=== PATIENT | male | born 1935 | race Caucasian/White ===

== ENCOUNTER 2018-05-25 13:40 | Inpatient (IN) | payer MEDICARE, OTHER ==
[~2018-05-25] VITALS: Ht 175.3 cm; Wt 78.0 kg
[~2018-05-25 13:40] MED LIST: pneumococcal 23-VAL P-sac vacc 25 mcg/0.5ml vial IMVAC ONE
[2018-05-25] MEDS ORDERED: normal saline 1000ML IV soln IVB ONE (14:45)
[2018-05-25] MEDS ORDERED: levoFLOXACIN-Levaquin 500mg/D5 100 ML IV ONE (14:45)
[2018-05-25 15:09] LABS: BASOPHILS % (AUTO) 0 % (0-1); EOSINOPHILS % (AUTO) 0 % (0-6); HEMATOCRIT 39.3 % (42.0-52.0); LYMPHOCYTES # (AUTO) 0.7 X10'3 (1.1-4.8); LYMPHOCYTES % (AUTO) 2.5 % (21-51); MEAN CORPUSCULAR HEMOGLOBIN 34.6 PG (27.0-31.0); MEAN CORPUSCULAR HGB CONC 33.2 % (33.0-36.5); MEAN CORPUSCULAR VOLUME 104.3 FL (78-98); MEAN PLATELET VOLUME 11.5 FL (7.4-10.4); MONOCYTES # (AUTO) 3.2 X10'3 (0-0.9); MONOCYTES % (AUTO) 11.7 % (2-12); NEUTROPHILS # (AUTO) 23.4 X10'3 (1.8-7.7); NEUTROPHILS % (AUTO) 85.8 % (42-75); PLATELET COUNT 168 X10'3 (140-440); RED BLOOD COUNT 3.76 X10'6 (4.70-6.10); RED CELL DISTRIBUTION WIDTH 15.1 % (11.5-14.5)
[2018-05-25 15:11] LABS: WHITE BLOOD COUNT 27.3 X10'3 (4.5-11.0)
[2018-05-25 15:34] LABS: ALANINE AMINOTRANSFERASE 23 U/L (12-78); ALBUMIN 3.7 G/DL (3.4-5.0); ALKALINE PHOSPHATASE 97 IU/L (46-116); ANION GAP 9 (8-16); ASPARTATE AMINO TRANSFERASE 18 U/L (10-37); BILIRUBIN,TOTAL 1.1 MG/DL (0.1-1.0); BLOOD UREA NITROGEN 14 MG/DL (7-18); BUN/CREATININE RATIO 11.6 (5.4-32.0); CALCIUM 8.8 MG/DL (8.5-10.1); CHLORIDE 101 MMOL/L (99-107); CREATININE 1.21 MG/DL (0.60-1.10); GLUCOSE 115 MG/DL (70-104); POTASSIUM 3.7 MMOL/L (3.5-5.1); SODIUM 139 MMOL/L (135-145); TOTAL CARBON DIOXIDE 29.2 MMOL/L (24-32); TOTAL PROTEIN 7.3 G/DL (6.4-8.2); eGFR 57 ML/MIN
[2018-05-25 15:42] LABS: LARGE PLATELETS FEW; STOMATOCYTES 1+; TOTAL CELLS COUNTED 100; TOXIC GRANULATION 2+
[2018-05-25 15:43] LABS: PLATELET ESTIMATE NORMAL
[2018-05-25 16:05] LABS: INR 1.1 INR; PARTIAL THROMBOPLASTIN TIME 27 SECONDS (22-32); PROTHROMBIN TIME 10.5 SECONDS (9.0-12.0)
[2018-05-25] MEDS ORDERED: vancomycin/NS 1 GM ADD-VANTAGE 250 ML IV ONE (16:05)
[2018-05-25] MEDS ORDERED: FINA5TAB11 PO (16:10)
[2018-05-25] MEDS ORDERED: LOSA25TA96 PO (16:10)
[2018-05-25] MEDS ORDERED: ALLO100T PO (16:10)
[2018-05-25 16:34] LABS: CLARITY,URINE CLEAR (Clear); COLOR,URINE YELLOW (Yellow); GLUCOSE, URINE NEGATIVE (Neg); KETONES,URINE NEGATIVE (Neg); LEUKOCYTE ESTERASE ,URINE NEGATIVE (Neg); NITRITES, URINE NEGATIVE (Neg); OCCULT BLOOD,URINE NEGATIVE (Neg); PROTEIN,URINE TRACE mg/dl (Neg)
[2018-05-25 16:35] LABS: UA COLLECTION TYPE URINAL
[2018-05-25 16:39] LABS: RBC,URINE NONE SEEN /HPF (0-2); WBC,URINE NONE SEEN /HPF (0-4)
[2018-05-25 16:40] LABS: BACTERIA,URINE NONE SEEN /HPF (Neg); MUCUS STRANDS NONE SEEN /LPF (Neg); SQUAMOUS EPITHELIAL CELL,UR NONE SEEN /LPF (FEW)
[2018-05-25] MEDS ORDERED: ipratropium/albuterol 3ml nebule NEB PRN (17:00)
[2018-05-25] MEDS ORDERED: potassium Cl 20 mEq SR tablet PO PRN ×2 (17:00)
[2018-05-25] MEDS ORDERED: ondansetron/PF 4mg/2ml inj IV PRN (17:00)
[2018-05-25] MEDS ORDERED: magnesium 4gm in 100ml NS 100 ML IV PRN (17:00)
[2018-05-25] MEDS ORDERED: magnesium Cl slow-release 64mg tablet PO PRN (17:00)
[2018-05-25] MEDS ORDERED: acetaminophen 325mg tablet PO PRN (17:00)
[2018-05-25] MEDS ORDERED: potassium Cl 40MEQ/NS 500ml 500 ML IV PRN ×2 (17:00)
[2018-05-25] MEDS: ipratropium/albuterol 3ml nebule NEB SCH ×2 (17:45→23:47)
--- NOTE | 2018-05-25 17:54 | NUR ---
PRE SVN STARTED AT 1745 DID NOT CHART IN REAL TIME
[2018-05-25] MEDS: normal saline 1000ml 1,000 ML IV SCH (18:05)
[2018-05-25] MEDS ORDERED: thyroid (18:10)
[2018-05-25 18:45] VITALS: BP 125/63
--- NOTE | 2018-05-25 20:00 | NUR ---
Patient in room ED 2. I have received report from Emely Flores and had the opportunity to ask questions and assume patient care.
[2018-05-25] MEDS: heparin, porcine 5000 units/ml vial SQ SCH (21:53)
[2018-05-26] VITALS: BP 112/53
[2018-05-26] MEDS: ipratropium/albuterol 3ml nebule NEB SCH ×6 (03:13→23:50)
[2018-05-26] MEDS: normal saline 1000ml 1,000 ML IV SCH ×3 (03:57→15:26)
--- NOTE | 2018-05-26 06:23 | NUR ---
Problems reprioritized. Patient report given, questions answered & plan of care reviewed with JOHANA Cavazos.
--- NOTE | 2018-05-26 06:53 | NUR ---
Patient in room [facility]. I have received report from Hay VAUGHN and had the opportunity to ask questions and assume patient care.
[2018-05-26 07:07] LABS: ALBUMIN 2.6 G/DL (3.4-5.0); ANION GAP 6 (8-16); BLOOD UREA NITROGEN 15 MG/DL (7-18); BUN/CREATININE RATIO 13.5 (5.4-32.0); CALCIUM 8.1 MG/DL (8.5-10.1); CHLORIDE 107 MMOL/L (99-107); CREATININE 1.11 MG/DL (0.60-1.10); GLUCOSE 107 MG/DL (70-104); POTASSIUM 3.5 MMOL/L (3.5-5.1); SODIUM 140 MMOL/L (135-145); TOTAL CARBON DIOXIDE 26.7 MMOL/L (24-32); eGFR 63 ML/MIN
[2018-05-26 07:17] LABS: BASOPHILS % (AUTO) 0 % (0-1); EOSINOPHILS # (AUTO) 0.2 X10'3 (0-0.9); EOSINOPHILS % (AUTO) 0.8 % (0-6); HEMATOCRIT 30.9 % (42.0-52.0); HEMOGLOBIN 10.4 g/dl (14.0-17.9); LYMPHOCYTES # (AUTO) 0.5 X10'3 (1.1-4.8); LYMPHOCYTES % (AUTO) 1.9 % (21-51); MEAN CORPUSCULAR HEMOGLOBIN 35.3 PG (27.0-31.0); MEAN CORPUSCULAR HGB CONC 33.8 % (33.0-36.5); MEAN CORPUSCULAR VOLUME 104.3 FL (78-98); MEAN PLATELET VOLUME 12.3 FL (7.4-10.4); MONOCYTES # (AUTO) 2.1 X10'3 (0-0.9); MONOCYTES % (AUTO) 8.9 % (2-12); NEUTROPHILS # (AUTO) 20.8 X10'3 (1.8-7.7); NEUTROPHILS % (AUTO) 88.4 % (42-75); PLATELET COUNT 112 X10'3 (140-440); RED BLOOD COUNT 2.96 X10'6 (4.70-6.10); RED CELL DISTRIBUTION WIDTH 15.3 % (11.5-14.5); WHITE BLOOD COUNT 23.5 X10'3 (4.5-11.0)
[2018-05-26] MEDS: K and/or MAG REPLACEMENT MC SCH (07:26)
[2018-05-26 07:29] VITALS: BP 118/64
[2018-05-26] MEDS: pantoprazole 40mg Tablet.DR PO SCH (07:33)
[2018-05-26] MEDS: heparin, porcine 5000 units/ml vial SQ SCH ×2 (07:34→19:34)
[2018-05-26] MEDS: CefTRIAXone/D5W-Rocephin 1gm 50 ML IV SCH (07:34)
[2018-05-26 07:37] LABS: LARGE PLATELETS FEW; PLATELET ESTIMATE DECREASED
[2018-05-26 07:45] LABS: TOTAL CELLS COUNTED 100
[2018-05-26 07:46] LABS: ANISOCYTOSIS 1+; TOXIC GRANULATION 1+
[2018-05-26] MEDS: azithromycin/NS 500mg/250ml 250 ML IV SCH (09:01)
[2018-05-26 11:29] VITALS: BP 114/63
[2018-05-26 11:42] LABS: BASOPHILS # (AUTO) 0.2 X10'3 (0-0.2); EOSINOPHILS % (AUTO) 0 % (0-6); HEMATOCRIT 33.4 % (42.0-52.0); HEMOGLOBIN 11.3 g/dl (14.0-17.9); LYMPHOCYTES # (AUTO) 0.6 X10'3 (1.1-4.8); LYMPHOCYTES % (AUTO) 2.4 % (21-51); MEAN CORPUSCULAR HEMOGLOBIN 35.4 PG (27.0-31.0); MEAN CORPUSCULAR HGB CONC 33.8 % (33.0-36.5); MEAN CORPUSCULAR VOLUME 104.8 FL (78-98); MONOCYTES # (AUTO) 2.4 X10'3 (0-0.9); NEUTROPHILS # (AUTO) 20.9 X10'3 (1.8-7.7); NEUTROPHILS % (AUTO) 86.6 % (42-75); PLATELET COUNT 131 X10'3 (140-440); RED BLOOD COUNT 3.19 X10'6 (4.70-6.10); RED CELL DISTRIBUTION WIDTH 15.8 % (11.5-14.5); WHITE BLOOD COUNT 24.1 X10'3 (4.5-11.0)
--- NOTE | 2018-05-26 12:51 | NUR ---
Initial: Pt admitted with sepsis and probable PNA. Pt currently on a heart healthy diet with documented PO intake 75-100% meeting nutrient needs. LBM 05/25. No edema or wounds. Will continue to follow. Recommendations: 1) Continue with heart healthy diet 2) Monitor need for ONS 3) Wt per rx Addendum: 05/26/18 at [address] Amended: Links added.
[2018-05-26] MEDS ORDERED: LEVO50TA PO (15:33)
[2018-05-26] MEDS ORDERED: finasteride 5mg tablet PO SCH (15:55)
[2018-05-26] MEDS ORDERED: allopurinol 300 MG tablet PO SCH (15:55)
[2018-05-26] MEDS: allopurinol 100mg tablet PO SCH (17:05)
[2018-05-26] MEDS: finasteride 5mg tablet PO SCH (17:19)
[2018-05-26 18:00] VITALS: BP 147/76
--- NOTE | 2018-05-26 18:32 | NUR ---
Problems reprioritized. Patient report given, questions answered & plan of care reviewed with Hay VAUGHN.
--- NOTE | 2018-05-26 18:33 | NUR ---
Patient in room [facility]. I have received report from JOHANA Cavazos and had the opportunity to ask questions and assume patient care.
[2018-05-26] MEDS: losartan 25mg tablet PO SCH (19:33)
[2018-05-27 00:14] VITALS: BP 131/61
[2018-05-27] MEDS: ipratropium/albuterol 3ml nebule NEB SCH ×2 (03:51→07:12)
[2018-05-27 05:22] LABS: ALBUMIN 2.6 G/DL (3.4-5.0); ANION GAP 10 (8-16); BLOOD UREA NITROGEN 12 MG/DL (7-18); BUN/CREATININE RATIO 11.5 (5.4-32.0); CALCIUM 8.3 MG/DL (8.5-10.1); CHLORIDE 108 MMOL/L (99-107); CREATININE 1.04 MG/DL (0.60-1.10); GLUCOSE 107 MG/DL (70-104); MAGNESIUM 2.1 MG/DL (1.5-2.4); POTASSIUM 3.3 MMOL/L (3.5-5.1); SODIUM 142 MMOL/L (135-145); TOTAL CARBON DIOXIDE 23.9 MMOL/L (24-32); eGFR 68 ML/MIN
[2018-05-27] MEDS: normal saline 1000ml 1,000 ML IV SCH (05:34)
[2018-05-27 05:36] LABS: BASOPHILS % (AUTO) 0.1 % (0-1); EOSINOPHILS # (AUTO) 0.2 X10'3 (0-0.9); EOSINOPHILS % (AUTO) 1.2 % (0-6); HEMATOCRIT 30.4 % (42.0-52.0); HEMOGLOBIN 10.1 g/dl (14.0-17.9); LYMPHOCYTES # (AUTO) 0.5 X10'3 (1.1-4.8); LYMPHOCYTES % (AUTO) 3.3 % (21-51); MEAN CORPUSCULAR HGB CONC 33.1 % (33.0-36.5); MEAN CORPUSCULAR VOLUME 105.8 FL (78-98); MEAN PLATELET VOLUME 11.4 FL (7.4-10.4); MONOCYTES # (AUTO) 1.7 X10'3 (0-0.9); MONOCYTES % (AUTO) 11.5 % (2-12); NEUTROPHILS # (AUTO) 12.4 X10'3 (1.8-7.7); NEUTROPHILS % (AUTO) 83.9 % (42-75); PLATELET COUNT 122 X10'3 (140-440); RED BLOOD COUNT 2.88 X10'6 (4.70-6.10); RED CELL DISTRIBUTION WIDTH 15.6 % (11.5-14.5); WHITE BLOOD COUNT 14.7 X10'3 (4.5-11.0)
--- NOTE | 2018-05-27 06:05 | NUR ---
Problems reprioritized. Patient report given, questions answered & plan of care reviewed with Emely Cavazos.
--- NOTE | 2018-05-27 06:30 | NUR ---
Patient in room [facility]. I have received report from Hay VAUGHN and had the opportunity to ask questions and assume patient care.
[2018-05-27 07:06] VITALS: BP 123/64
[2018-05-27] MEDS: K and/or MAG REPLACEMENT MC SCH (07:28)
[2018-05-27] MEDS: pantoprazole 40mg Tablet.DR PO SCH (07:33)
[2018-05-27] MEDS: CefTRIAXone/D5W-Rocephin 1gm 50 ML IV SCH (07:33)
[2018-05-27] MEDS: losartan 25mg tablet PO SCH (07:33)
[2018-05-27] MEDS: allopurinol 100mg tablet PO SCH (07:33)
[2018-05-27] MEDS: finasteride 5mg tablet PO SCH (07:33)
[2018-05-27] MEDS: heparin, porcine 5000 units/ml vial SQ SCH (07:34)
[2018-05-27] MEDS: azithromycin/NS 500mg/250ml 250 ML IV SCH (08:30)
[2018-05-27] MEDS ORDERED: LEVO750T21 PO (09:40)
[2018-05-27] MEDS ORDERED: potassium Cl 20 mEq SR tablet PO ONE (09:45)
--- NOTE | 2018-05-27 10:20 | NUR ---
Patient discharged with all belongings. Discharge instructions gone over with pt and signed. IV taken out. Patient walked out to front lobby with PCT.
== END 2018-05-27 10:21 | disposition home or self-care (01) | DRG 871 ==
LOC: ER 13:41 → ED HOLD 16:59 → SUR 3N 20:04
PROVIDERS: ADMIT Internal Medicine; ATTEND Internal Medicine
DX: A41.9 Sepsis, unspecified organism (principal); J18.1 Lobar pneumonia, unspecified organism; N17.9 Acute kidney failure, unspecified; I10 Essential (primary) hypertension; N40.0 Benign prostatic hyperplasia without lower urinary tract symptoms; M10.9 Gout, unspecified; Z79.899 Other long term (current) drug therapy; Z91.013 Allergy to seafood
CPT/HCPCS: 36415; 71045; 80048; 80053; 81001; 83605; 83735; 84145; 85025; 85610; 85730; 87040; 87070; 87502; 87503; 90732; 94640; 94667; 94668; 94760; 96365; 96367; 99285; G0378; J0456; J0696; J1644; J1956; J3370; J7030